=== PATIENT | female | born 1965 | race Caucasian/White ===

== ENCOUNTER 2024-12-28 08:54 | Outpatient (AMB) | payer OTHER, BC, SELFPAY ==
[2024-12-28 09:09] VITALS: BP 109/74; PULSE 77; RESP 16; TEMP 36.2; O2SAT 97; BMI 23.9
--- NOTE | 2024-12-28 09:09 | GYNCLNT_ITS ---
Vital Signs 3 12/28/24 09:09 Height 1.75 m Height Method Stated Weight 73.482 kg Weight Measurement Method Standing Scale BMI 23.9 BP 109/74 Blood Pressure Source Automatic Cuff Blood Pressure Location Right Upper Arm Position Sitting Respiration 16 Pulse 77 Pulse Source Monitor Temp 97.1 F Temp Source Oral Pulse Oximetry (%) 97 Oxygen Delivery Method Room Air Allergies/Home Meds Allergies & Medications Allergies diclofenac (From Voltaren) Allergy (Severe, Verified 12/28/24 09:11) Rash nitrofurantoin (From Macrobid) Allergy (Severe, Verified 12/28/24 09:11) Rash Medication Reconciliation tirzepatide (weight loss) 7.5 mg/0.5 mL subcutaneous pen injector (Zepbound) 7.5 mg subcut QWEEK 12/28/24 [History Confirmed 12/28/24] clobetasol 0.05 % topical ointment 1 applic topical QHS 4 weeks #60 grams 01/02/25 [Rx] estradiol 0.01% (0.1 mg/gram) vaginal cream (Estrace) 1 g vaginal .COMPLEX #42.5 grams 01/02/25 [Rx] Intake Visit Data Collection New Patient or Established: New Patient (never been to [facility]) Reason for Visit:: ANNUAL WELLNESS Seen by Clinical Staff ONLY (RN/MA): No Sewage Treatment Plant Operator Required: No Do You Feel Safe at Home: Yes Authorities Contacted: N/A PCP or OBGYN visit in last 3 months: Yes Hx Now: No Are you currently on any form of Control: No Last menstrual period: 07/04/20 Pain Present Currently: No Pain Scale Used: Contreras-Carmichael/Numerical Pain scale:: 0 Smoking Status Smoking Status: Never smoker Procurement Technician history Procurement Technician History Age at menarche: 19 Menopausal: Yes If menopausal, at what age did it occur: 54 Currently sexually active: Yes Additional comments: Patient went through menopause in 2019. She had a tiny bit of spotting last summer. No hormone replacement therapy. ORDER EDITOR: Past Medical History Additional Operations/Hospitalizations (year & reason): Patient has had 2 vaginal deliveries one in 1995 and one in 1997 Patient is on Zepbound for weight loss currently. Other Relevant History: Retropubic sling for incontinence with Dr. Zayas in 2020 Questionnaires Covid-19 Vaccine Questionnaire Has patient been vacinated for Covid-19 Have you been vacinated for Covid-19: Yes PHQ-9 PHQ-2 Over the last 2 weeks, how often have you been bothered by any of the following problems? 1. Little interest or pleasure in doing things: not at all 2. Feeling down, depressed, or hopeless: not at all Total score: 0 PHQ-9 3. Trouble falling or staying asleep, or sleeping too much: Not at all 4. Feeling tired or having little energy: Not at all 5. Poor appetite or overeating: Not at all 6. Feeling bad about yourself - or that you are a failure or have let yourself or your family down: Not at all 7. Trouble concentrating on things, such as reading the newspaper or watching television: Not at all 8. Moving or speaking so slowly that other people could have noticed? - Or the opposite - being so fidgety or restless that you have been moving around a lot more than usual: not at all 9. Thoughts that you would be better off or of hurting yourself in some way: Not at all Total score: 0 Source: Developed by Drs. Srikanth Richards, Agustina Maher, Cuate Lopez and colleagues, with an educational [place] from [employer]. Depression screen completed yes Social History Living Situation History Marital Status: Lives With: Family Housing: House Housing Other:: Patient is a college administrator. She has a 29-y/o son and 27 y/o daughter Tobacco History Smoking Status: Never smoker Domestic Abuse History Do You Feel Safe at Home: Yes History of Present Illness HPI Narrative The patient is a 59-year-old -0-0-2 who used to see me in [place] who presents for an annual exam. She went through menopause at about age 54 in 2019. No current hormone replacement therapy. She is reporting occasional hot flashes. She had some spotting last summer but states we did an ultrasound and this was normal. I do not have her records from my office. She thought she had some swelling in her vaginal area in July 2024 and states this has resolved. Last mammogram was January 2024 ,last colonoscopy was January 2023. She has never had a bone density test yet. She denies any chronic medical problems. She underwent a sling in [address] Zayas in [place] and is reporting vaginal dryness and some dribbling. She is on Zepbound to lose weight. One of her children, her daughter, is getting soon. She works as a registrar college or university. She denies any physical complaints except for bladder issues and vaginal dryness. Last Pap was about a year ago. Patient went through menopause in 2020 at about age 54. Menstrual character: absent Gynecologic pain symptoms: Reports none Urogynecologic symptoms: Reports urinary frequency and post void dribbling Menopause concerns/symptoms: Reports hot flashes (Occasional) and vaginal dryness Review of Systems Review of Systems Narrative Review of Systems: Patient reports some urgency and dribbling. She reports some vaginal dryness. Occasional hot flashes and night sweats. No postmenopausal bleeding. She had some spotting last summer but we worked this up in my previous office. Genitourinary Genitourinary: Reports hot flashes (Occasional), Reports post void dribbling, Reports urinary frequency and Reports vaginal dryness Exam General General Appearance: alert, in no apparent distress, comfortable, cooperative, healthy appearing, well developed and well groomed Exp Chest Breast: bilateral: other (Normal breast exam bilaterally) External exam: Present normal external exam and other (Signs of atrophic vaginitis and dryness around her urethra present. No erosion of her sling is present.) Speculum exam: Present normal speculum exam and other (Atrophic changes of cervix.) Bimanual exam: Present normal bimanual exam and other (Uterus anteverted. Not enlarged.) Genitals Female CloseUp: 2 1. Signs of lichen sclerosis present Office Procedures OB Clinic LOC & Office Proc's Nursing/Assessment Patient Status: Initial/New Patient OB Clinic Nursing Assessment: Medication Reconciliation, Update PMH in EMR and Vital Signs OB Clinic Coordination of Care: Complex Care and Chronic Disease 1-5, Consent,records obtained, informed consent, Education Simp Pt/Fam, Lab and Imaging orders, Results/Orders obtained and Staff clarify orders Miscellaneous Interventions: Breast Exam and Pelvic/Pap Smear Set up New Patient Charge New Patient Point Assignment: 1154 New Patient Point Charge: MOLDER FOAM RUBBER Level 4 ([id number]) In Clinic Procedures Pap Smear: Yes Assessment & Plan Diagnosis / Problem List (1) Encounter for Routine Gynecological Examination: Qualifiers: Gynecological examination findings: abnormal findings ABSENT Qualified Code(s): Z01.419 - Encounter for gynecological examination (general) (routine) without abnormal findings Assessment and Plan: Pap with cotesting to HPV performed, breast exam done and encouraged. The patient already has a mammogram scheduled for January. She can follow-up with her primary care for any lab work. (2) Lichen sclerosus of vulva: Status: Acute Assessment and Plan: Clobetasol prescribed to her upper vulvar area around her urethra. (3) Post-menopausal atrophic vaginitis: Status: Acute Assessment and Plan: Estrace vaginal cream called in. Instructions given on how to use this. Additional Plan Follow Up: 1 Year (Call for appointment in 10 to 11 months) VERIFICATION SPECIALIST: Papsmear Pap Smear Procedure [place] in room during procedure?: No Pre-op diagnosis general: Annual wellness exam Post-op diagnosis procedure note: Same Procedure Notes:: Pap with cotesting to HPV performed Papsmear completed: yes
== END 2024-12-28 09:41 | disposition home or self-care (01) ==
LOC: HODSOBC 08:54
PROVIDERS: PCP Nurse Practitioner Family; Referring Provider Nurse Practitioner Family; Supervising Provider Obstetrics & Gynecology; Visit Provider Obstetrics & Gynecology
DX: Z01.411 Encounter for gynecological examination (general) (routine) with abnormal findings (principal); Z11.51 Encounter for screening for human papillomavirus (HPV); N95.2 Postmenopausal atrophic vaginitis; N90.4 Leukoplakia of vulva
CPT/HCPCS: 99204; Q0091; G0463